=== PATIENT | male | born 1995 | race Caucasian/White ===

== ENCOUNTER 2019-02-03 16:05 | Emergency (ER) | payer OTHER ==
[~2019-02-03] VITALS: Ht 176.5 cm; Wt 115.7 kg
[~2019-02-03 16:05] MED LIST: METH36TA5 PO
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
[2019-02-03] MEDS ORDERED: LIDOCAINE 1% Multi-Dose 20 ML VIAL. ONE (16:43)
--- NOTE | 2019-02-03 16:49 | RAD ---
Three-view right knee and three-view right elbow dated 02/03/2019. No comparison available. CLINICAL INDICATION: Pain after fall. FINDINGS: 3 views right knee show normal bony alignment. No displaced fracture. No apparent joint effusion or loose body. No acute osseous or articular abnormality. 3 views of the right elbow show normal bony alignment. No displaced fracture. No acute osseous or articular abnormality. No fat pad elevation to suggest joint effusion. Mild soft tissue swelling dorsally. IMPRESSION: 1. No acute bony abnormality right knee or right elbow. Electronically signed by: Esteban Del Rio MD (02/03/2019 4:46 PM) [facility]
[2019-02-03] MEDS ORDERED: DIPHTH,PERTUSS(ACELL),TET TOX 0.5 ML DISP.SYRIN. VAX IM ONE (17:15)
[2019-02-03 17:20] VITALS: BP 165/87
== END 2019-02-03 17:20 | disposition home or self-care (01) ==
LOC: ER 16:05
DX: S51.011A Laceration without foreign body of right elbow, initial encounter (principal); M25.561 Pain in right knee; V98.8XXA Other specified transport accidents, initial encounter; Y93.55 Activity, bike riding; Y92.488 Other paved roadways as the place of occurrence of the external cause; Y99.8 Other external cause status
CPT/HCPCS: 12001; 73080; 73562; 90471; 90715; 99284-25

== ENCOUNTER 2019-02-11 11:44 | Emergency (ER) | payer OTHER ==
[~2019-02-11] VITALS: Ht 176.5 cm; Wt 126.6 kg
[2019-02-11 11:59] VITALS: BP 139/93
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
[2019-02-11] MEDS ORDERED: NEOMY/BACITR/POLYMYXIN OINT PACKET. TP ONE (12:45)
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
[2019-02-11] MEDS ORDERED: IBUP600T16 PO (13:24)
[2019-02-11] MEDS ORDERED: CEPH-264 PO (13:24)
[2019-02-11] MEDS ORDERED: IBUPROFEN 600 MG TABLET. PO ONE (13:30)
[2019-02-11] MEDS ORDERED: ACETAMINOPHEN 500 MG TABLET PO ONE (13:30)
== END 2019-02-11 13:34 | disposition home or self-care (01) ==
LOC: ER 11:44
DX: S62.616A Displaced fracture of proximal phalanx of right little finger, initial encounter for closed fracture (principal); S62.624A Displaced fracture of middle phalanx of right ring finger, initial encounter for closed fracture; S09.8XXA Other specified injuries of head, initial encounter; S39.012A Strain of muscle, fascia and tendon of lower back, initial encounter; E11.9 Type 2 diabetes mellitus without complications; V28.4XXA Motorcycle driver injured in noncollision transport accident in traffic accident, initial encounter; Y93.55 Activity, bike riding; Y92.488 Other paved roadways as the place of occurrence of the external cause; Y99.8 Other external cause status
CPT/HCPCS: 29130; 70450; 72100; 72125; 73130; 99284-25

== ENCOUNTER → 2019-04-07 | Outpatient (CLI) | payer OTHER ==
[~2019-04-07] MED LIST changes: +CEPH-264 PO; +IBUP600T16 PO
--- NOTE | 2019-04-07 18:10 | RAD ---
CT head without contrast: Reason for examination: Tension headaches for 2 weeks. Comparison is made to previous study dated 02/11/2019. Axial images were obtained through the brain. No contrast was administered. Exposure: One or more of the following individualized dose reduction techniques were utilized for this examination: 1. Automated exposure control 2. Adjustment of the mA and/or kV according to patient size 3. Use of iterative reconstruction technique. Ventricular systems are symmetric and not dilated. No midline shift is seen. There is no evidence of intracranial hemorrhage, infarct, mass or edema. No abnormalities are seen at the orbits. The paranasal sinuses and mastoid air cells are clear. No acute abnormality seen in the skull. IMPRESSION: No acute intracranial abnormality evident. Electronically signed by: Yana Linton MD (04/07/2019 6:06 PM) [facility]
== END | disposition home or self-care (01) ==
LOC: CT 17:21
PROVIDERS: ATTEND Family Medicine
DX: G44.209 Tension-type headache, unspecified, not intractable (principal)
CPT/HCPCS: 70450

== ENCOUNTER 2019-09-09 18:15 | Emergency (ER) | payer MEDICAID, OTHER ==
[~2019-09-09] VITALS: Ht 175.3 cm; Wt 125.6 kg
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
[2019-09-09 20:29] VITALS: BP 122/84
--- NOTE | 2019-09-10 04:23 | RAD ---
HIP LEFT 2V WITH PELVIS DATE: 09/09/2019 6:52 PM INDICATION: Fall, hip pain COMPARISON: None. FINDINGS: Bones: Postsurgical changes of bilateral hip ORIF. Surgical hardware is intact. There is no evidence of acute fracture or dislocation. Joints: The joint spaces are normal. Miscellaneous: None. IMPRESSION: No evidence of acute fracture. Electronically signed by: Jose Gallegos MD (09/10/2019 4:20 AM) [id number]
--- NOTE | 2019-09-10 04:23 | RAD ---
ELBOW RIGHT 3V DATE: 09/09/2019 6:52 PM INDICATION: Pain after falling COMPARISON: None. FINDINGS: Bones: There is no evidence of acute fracture or dislocation. Joints: The joint spaces are normal. There is no joint effusion. Miscellaneous: None. IMPRESSION: No evidence of acute fracture. Electronically signed by: Jose Gallegos MD (09/10/2019 4:20 AM) [id number]
== END 2019-09-09 20:29 | disposition home or self-care (01) ==
LOC: ER 18:15
DX: S70.02XA Contusion of left hip, initial encounter (principal); M25.521 Pain in right elbow; E11.9 Type 2 diabetes mellitus without complications; W18.31XA Fall on same level due to stepping on an object, initial encounter; Y93.89 Activity, other specified; Y92.89 Other specified places as the place of occurrence of the external cause; Y99.8 Other external cause status
CPT/HCPCS: 73080; 73502; 99284

== ENCOUNTER → 2020-02-28 | Outpatient (CLI) | payer MEDICAID ==
--- NOTE | 2020-02-28 16:30 | RAD ---
LUMBAR SPINE 2-3V History: Back pain Comparison: February 11, 2019 Findings: 3 views of the lumbar spine are submitted. There is again minimal lumbar levoscoliosis. Lumbar vertebral body stature is maintained. There is again narrowing of the L5-S1 intervertebral disc space probably on developmental basis. There is similar mild narrowing of the L4-5 intervertebral disc space. Negligible posterior subluxation L4 relative L5 is similar. There is again incomplete fusion of the posterior elements of S1. Impression: 1. Radiographic findings as stated are similar. Electronically signed by: Jose Avina MD (02/28/2020 4:27 PM) [id number]
== END ==
LOC: DXRAD 14:48
PROVIDERS: ATTEND Physician Assistant
DX: M48.07 Spinal stenosis, lumbosacral region (principal); M43.28 Fusion of spine, sacral and sacrococcygeal region
CPT/HCPCS: 72100